=== PATIENT | male | born 1995 | race Caucasian/White ===

== ENCOUNTER 2020-08-11 02:02 | Emergency (ER) | payer MEDICAID ==
[~2020-08-11] VITALS: Ht 177.8 cm; Wt 86.4 kg
[2020-08-11 02:05] VITALS: BP 123/84
[2020-08-11] MEDS ORDERED: LIDOcaine Viscous 15ml cup MM STA (02:28)
[2020-08-11] MEDS ORDERED: mag hydrox/Alum hydrox/simeth 30ml oral suspension PO ONE (02:30)
[2020-08-11] MEDS ORDERED: diphenhydrAMINE 25 MG/10 ML UD oral solution PO ONE (02:30)
[2020-08-11 03:03] LABS: ALANINE AMINOTRANSFERASE 39 U/L (12-78); ALBUMIN 3.4 G/DL (3.4-5.0); ALBUMIN/GLOBULIN RATIO 1.1 (1.1-1.5); ALKALINE PHOSPHATASE 60 IU/L (46-116); ANION GAP 14 (8-16); ASPARTATE AMINO TRANSFERASE 48 U/L (10-37); BILIRUBIN,TOTAL 0.5 MG/DL (0.1-1.0); BLOOD UREA NITROGEN 20 MG/DL (7-18); BUN/CREATININE RATIO 17.5 (5.4-32.0); CALCIUM 8.2 MG/DL (8.5-10.1); CHLORIDE 103 MMOL/L (99-107); CREATININE 1.14 MG/DL (0.60-1.10); GLUCOSE 101 MG/DL (70-104); POTASSIUM 3.2 MMOL/L (3.5-5.1); SODIUM 141 MMOL/L (135-145); TOTAL CARBON DIOXIDE 24.1 MMOL/L (24-32); TOTAL PROTEIN 6.6 G/DL (6.4-8.2); eGFR 77 ML/MIN
[2020-08-11 03:06] LABS: LIPASE 73 U/L (73-393); TROPONIN I < 0.04 NG/ML (0.0-0.05)
[2020-08-11 03:08] LABS: BASOPHILS # (AUTO) 0.1 X10'3 (0-0.2); BASOPHILS % (AUTO) 1.4 % (0-1); EOSINOPHILS # (AUTO) 0.5 X10'3 (0-0.9); EOSINOPHILS % (AUTO) 8.1 % (0-6); HEMATOCRIT 41.7 % (42.0-52.0); HEMOGLOBIN 14.1 g/dl (14.0-17.9); LYMPHOCYTES # (AUTO) 2.3 X10'3 (1.1-4.8); LYMPHOCYTES % (AUTO) 37.9 % (21-51); MEAN CORPUSCULAR HEMOGLOBIN 30.4 PG (27.0-31.0); MEAN CORPUSCULAR HGB CONC 33.8 g/dL (33.0-36.5); MEAN PLATELET VOLUME 7.9 FL (7.4-10.4); MONOCYTES # (AUTO) 0.7 X10'3 (0-0.9); MONOCYTES % (AUTO) 11.8 % (2-12); NEUTROPHILS # (AUTO) 2.4 X10'3 (1.8-7.7); NEUTROPHILS % (AUTO) 40.8 % (42-75); PLATELET COUNT 270 X10'3 (140-440); RED BLOOD COUNT 4.64 X10'6 (4.70-6.10); RED CELL DISTRIBUTION WIDTH 12.8 % (11.5-14.5)
[2020-08-11] MEDS ORDERED: ketorolac tromethamine 15mg/ml inj. IM ONE (03:30)
== END 2020-08-11 04:56 | disposition home or self-care (01) ==
LOC: ER 02:03
DX: R07.89 Other chest pain (principal); M25.511 Pain in right shoulder; Z72.89 Other problems related to lifestyle; Z91.013 Allergy to seafood
CPT/HCPCS: 36415; 71045; 80053; 83690; 84484; 85025; 93005; 93308; 96372; 99285; J1885; Q0163

== ENCOUNTER 2020-08-27 01:58 | Emergency (ER) | payer OTHER, MEDICAID ==
[~2020-08-27] VITALS: Ht 198.9 cm; Wt 109.1 kg
[2020-08-27] MEDS ORDERED: HYDROcodone & chlorphen. 10-8mg/5ml oral susp. PO PRN (02:25)
[2020-08-27] MEDS ORDERED: benzonatate 100mg capsule PO ONE (02:25)
[2020-08-27] MEDS ORDERED: guaiFENesin/codeine phos 10ml UD oral syrup PO ONE (02:35)
[2020-08-27 02:39] LABS: BASOPHILS # (AUTO) 0.1 X10'3 (0-0.2); BASOPHILS % (AUTO) 1.5 % (0-1); EOSINOPHILS # (AUTO) 0.9 X10'3 (0-0.9); EOSINOPHILS % (AUTO) 12.6 % (0-6); HEMATOCRIT 42.1 % (42.0-52.0); HEMOGLOBIN 14.6 g/dl (14.0-17.9); LYMPHOCYTES # (AUTO) 2.5 X10'3 (1.1-4.8); LYMPHOCYTES % (AUTO) 35.3 % (21-51); MEAN CORPUSCULAR HEMOGLOBIN 30.9 PG (27.0-31.0); MEAN CORPUSCULAR HGB CONC 34.6 g/dL (33.0-36.5); MEAN CORPUSCULAR VOLUME 89.1 FL (78-98); MEAN PLATELET VOLUME 7.9 FL (7.4-10.4); MONOCYTES # (AUTO) 0.6 X10'3 (0-0.9); NEUTROPHILS # (AUTO) 2.9 X10'3 (1.8-7.7); NEUTROPHILS % (AUTO) 41.6 % (42-75); PLATELET COUNT 262 X10'3 (140-440); RED BLOOD COUNT 4.72 X10'6 (4.70-6.10); RED CELL DISTRIBUTION WIDTH 12.7 % (11.5-14.5); WHITE BLOOD COUNT 7.1 X10'3 (4.5-11.0)
--- NOTE | 2020-08-27 02:46 | NUR ---
Patient back for xray and with Dr. Galicia
[2020-08-27 02:47] LABS: ALBUMIN 3.7 G/DL (3.4-5.0); ANION GAP 14 (8-16); BLOOD UREA NITROGEN 17 MG/DL (7-18); BUN/CREATININE RATIO 14.9 (5.4-32.0); CALCIUM 8.7 MG/DL (8.5-10.1); CHLORIDE 106 MMOL/L (99-107); CREATININE 1.14 MG/DL (0.60-1.10); GLUCOSE 107 MG/DL (70-104); POTASSIUM 3.5 MMOL/L (3.5-5.1); SODIUM 144 MMOL/L (135-145); TOTAL CARBON DIOXIDE 23.9 MMOL/L (24-32); eGFR 77 ML/MIN
[2020-08-27] MEDS ORDERED: PROM5SYR2 PO (04:22)
[2020-08-27] MEDS ORDERED: BENZ-16 PO (04:22)
[2020-08-27 04:36] VITALS: BP 120/63
== END 2020-08-27 04:40 | disposition home or self-care (01) ==
LOC: ER 01:59
DX: R05 Cough (principal); Z20.822 Contact with and (suspected) exposure to COVID-19; R06.02 Shortness of breath; R51.9 Headache, unspecified; F17.200 Nicotine dependence, unspecified, uncomplicated; Z72.89 Other problems related to lifestyle; Z91.013 Allergy to seafood; Z79.899 Other long term (current) drug therapy
CPT/HCPCS: 36415; 71046; 80048; 85025; 87635; 99284; C9803

== ENCOUNTER 2021-12-09 21:43 | Emergency (ER) | payer OTHER, MEDICAID ==
[~2021-12-09] VITALS: Ht 185.4 cm; Wt 84.1 kg
[~2021-12-09 21:43] MED LIST: PROM5SYR2 PO
[2021-12-09 21:54] VITALS: BP 139/90
== END 2021-12-10 00:32 | disposition left against medical advice (07) ==
LOC: ER 21:45
DX: R52 Pain, unspecified (principal); Z53.21 Procedure and treatment not carried out due to patient leaving prior to being seen by health care provider

== ENCOUNTER 2022-05-14 17:24 | Emergency (ER) | payer OTHER, MEDICAID ==
[~2022-05-14] VITALS: Ht 193 cm; Wt 84.0 kg
[2022-05-14] MEDS ORDERED: bacitracin 15gm ointment TP ONE (19:50)
[2022-05-14] MEDS ORDERED: ondansetron/PF 4mg/2ml inj IV ONE (19:50)
[2022-05-14] MEDS ORDERED: ketorolac trometh. 30mg/ml inj. IV ONE (19:50)
[2022-05-14] MEDS ORDERED: piperacillin/tazo 3.375gm/50ml 50 ML IV ONE (19:50)
[2022-05-14] MEDS ORDERED: TETanus/Pertussis (Acell)/Diphther VAC/PF (Tdap-Adult) 0.5ml syringe IMVAC ONE (19:50)
--- NOTE | 2022-05-14 20:43 | NUR ---
Patient wounds cleansed with soap and antiseptic scrup. Large laceration to back irrigated with sterile solution per provider recommendation. Patient provided suture setup. Wounds to hands were scrubbed and dressed with bacitracin band aid dressing.
[2022-05-14] MEDS ORDERED: AMOX-117 PO (20:54)
[2022-05-14 21:54] VITALS: BP 118/76
--- NOTE | 2022-05-14 21:56 | NUR ---
Wounds dressed with non-adherent bacitracin dressing.
== END 2022-05-14 21:57 | disposition home or self-care (01) ==
LOC: ER 17:25
DX: S31.119A Laceration without foreign body of abdominal wall, unspecified quadrant without penetration into peritoneal cavity, initial encounter (principal); S50.312A Abrasion of left elbow, initial encounter; Z79.899 Other long term (current) drug therapy; Z91.018 Allergy to other foods; Y04.0XXA Assault by unarmed brawl or fight, initial encounter; Y93.89 Activity, other specified; Y92.89 Other specified places as the place of occurrence of the external cause; Y99.8 Other external cause status
CPT/HCPCS: 12004; 70450; 70486; 73080; 74176; 90471; 90715; 96365; 96375; 99285; J1885; J2405; J2543; J7030; A6253; A6446; A6449